=== PATIENT | male | born 2000 | race Caucasian/White ===

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

== ENCOUNTER 2022-08-18 13:37 | Emergency (ER) | payer BC, OTHER ==
[2022-08-18 13:39] VITALS: BP 142/82
[2022-08-18] MEDS ORDERED: diazePAM 5MG TABLET PO ONE (16:30)
[2022-08-18] MEDS ORDERED: LIDOCAINE 5% (LIDODERM) PATCH TD ONE (16:30)
[2022-08-18] MEDS ORDERED: METOCLOPRAMIDE INJ 10MG/2ML VIAL IV ONE (16:30)
[2022-08-18] MEDS ORDERED: KETOROLAC 30 MG/ML 1ML VIAL IV ONE (16:30)
[2022-08-18] MEDS ORDERED: NS 1,000 ML IV ONE (16:30)
[2022-08-18 17:35] LABS: BASO % 0.3 % (0.0-1.0); EOS # 0.1 10^3/uL (0.0-0.5); EOS % 0.9 % (0.0-3.0); HEMATOCRIT 41.4 % (42.0-52.0); HEMOGLOBIN 13.6 g/dl (13.5-17.5); LYMPH # 1.2 10^3/uL (1.5-5.0); LYMPH % 10.6 % (24.0-44.0); MEAN CORPUSCULAR HEMOGLOBIN 29.8 pg (27.0-33.0); MEAN CORPUSCULAR HGB CONC 32.9 g/dl (32.0-36.5); MEAN CORPUSCULAR VOLUME 90.6 fl (80.0-96.0); MONO % 17.8 % (2.0-8.0); NEUTROPHILS # 8.1 10^3/uL (1.5-8.5); PLATELET COUNT, AUTOMATED 243 10^3/uL (150-450); RED BLOOD COUNT 4.57 10^6/uL (4.30-6.10); WHITE BLOOD COUNT 11.6 10^3/uL (4.0-10.0)
[2022-08-18 17:36] LABS: MONO # 2.1 10^3/uL (0.0-0.8)
[2022-08-18 17:51] LABS: ERYTHROCYTE SEDIMENTATION RATE 26 mm/hr (0-15)
[2022-08-18 18:02] LABS: RSV AMPLIFICATION NEGATIVE (NEGATIVE)
[2022-08-18] MEDS ORDERED: ASPE4PAD TOP (19:07)
[2022-08-18] MEDS ORDERED: METH-1165 PO (19:07)
[2022-08-18] MEDS ORDERED: PRED20TA PO (19:07)
[2022-08-18] MEDS ORDERED: PAME10CA PO (19:07)
== END 2022-08-18 19:27 | disposition home or self-care (01) ==
LOC: M ED 13:37
DX: G44.309 Post-traumatic headache, unspecified, not intractable (principal); R50.9 Fever, unspecified; M25.511 Pain in right shoulder
CPT/HCPCS: 70450; 72125; 73030; 80047; 83605; 85025; 85652; 86140; 86618; 87040; 87077; 87186; 87631; 93005; 96374; 96375; 99284; J1100; J1885; J2765

== ENCOUNTER → 2024-09-24 | Outpatient (CLI) | payer OTHER ==
[~2024-09-24] MED LIST changes: +ASPE4PAD TOP; +DICY-61 PO; -DICY10CA13 PO; +METH-1165 PO; +PAME10CA PO; +PRED20TA PO
== END ==
LOC: M OUTALCOH 07:45
PROVIDERS: ATTEND Psychiatry & Neurology Psychiatry
DX: F10.20 Alcohol dependence, uncomplicated (principal); F17.200 Nicotine dependence, unspecified, uncomplicated

== ENCOUNTER → 2024-12-11 | Outpatient (CLI) | payer BC | LOC: M OUTALCOH 09:13 | PROVIDERS: ATTEND Psychiatry & Neurology Psychiatry | DX: F10.20 Alcohol dependence, uncomplicated (principal); F14.10 Cocaine abuse, uncomplicated; F12.10 Cannabis abuse, uncomplicated; F17.200 Nicotine dependence, unspecified, uncomplicated ==

== ENCOUNTER 2024-12-28 08:56 | Outpatient (RCR) | payer BC | END 2025-01-13 | LOC: M OUTALCOH 08:56 | PROVIDERS: ATTEND Psychiatry & Neurology Psychiatry | DX: F10.20 Alcohol dependence, uncomplicated (principal); F14.10 Cocaine abuse, uncomplicated; F12.10 Cannabis abuse, uncomplicated; F17.200 Nicotine dependence, unspecified, uncomplicated ==